=== PATIENT | male | born 1985 | race Caucasian/White ===

== ENCOUNTER 2019-08-31 17:44 | Emergency (ER) | payer OTHER ==
[2019-08-31 17:55] VITALS: BMI 23.8
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
[2019-08-31] MEDS ORDERED: KETOROLAC TROMETHAMINE 30 MG/1 ML VIAL IM ONE (18:00)
[2019-08-31] MEDS ORDERED: KETOROLAC TROMETHAMINE 30 MG/1 ML VIAL ONE (18:22)
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
[2019-08-31 20:34] VITALS: BP 122/77; PULSE 74; TEMP 98
== END 2019-08-31 20:36 | disposition home or self-care (01) ==
LOC: JER 17:44
PROC: 3E0233Z Introduction of Anti-inflammatory into Muscle, Percutaneous Approach (ICD-10-PCS; principal; 2019-08-31)
DX: S39.012A Strain of muscle, fascia and tendon of lower back, initial encounter (principal); M62.830 Muscle spasm of back; V49.49XA Driver injured in collision with other motor vehicles in traffic accident, initial encounter; Y92.414 Local residential or business street as the place of occurrence of the external cause; Y93.89 Activity, other specified; Y99.8 Other external cause status; F17.210 Nicotine dependence, cigarettes, uncomplicated
CPT/HCPCS: 99281-25

== ENCOUNTER 2020-05-24 17:00 | Emergency (ER) | payer OTHER ==
[2020-05-24 17:07] VITALS: BMI 26.2
[2020-05-24] MEDS ORDERED: SODIUM CHLORIDE 0.9% 500 ML INFUS.BAG IV ONE (17:39)
[2020-05-24] MEDS ORDERED: ONDANSETRON 4 MG/2 ML VIAL IVPUSH ONE (17:39)
--- NOTE | 2020-05-24 17:45 | PDOC ---
History of Present Illness - General Chief Complaint: Pain Stated Complaint: ABD PAIN Time Seen by Provider: 05/24/20 17:18 History Source: Patient Exam Limitations: No Limitations - History of Present Illness Initial Comments: 05/24/20 17:40 35-year-old male denies past medical history presents complaining of abdominal cramping with distention and nausea x 3 days. Initially felt chills and subjective fevers, reports approximately 10 episodes of loose stools with "green color " and mucus. Denies known sick contacts, recent travel, cough, chest pain, shortness of breath, back pain, urinary complaints, testicular pain, use of new medications. Patient tolerating p.o. ROS: as above PE: GENERAL: well-appearing, NAD HEAD: NCAT EYES: Pupils equal, round and reactive to light, sclera anicteric, conjunctiva clear ENT: pharynx: no erythema, no exudate, uvula midline NECK: supple CHEST: nontender RESP: clear, no w/r/r CARDIO: rrr, no m/g/r ABD: +BS, soft, right lower quadrant tenderness to palpation, no rebound, no guarding BACK: no midline spinal ttp, no CVAT EXTREMITIES: Normal range of motion, no edema NEUROLOGICAL: Normal speech, normal gait SKIN: Warm, Dry Is this a multiple visit Asthma Patient?: No Past History - Medical History Allergies/Adverse Reactions: Allergies Allergy/AdvReac Type Severity Reaction Status Date / Time No Known Allergies Allergy Verified 05/24/20 17:04 Home Medications: Ambulatory Orders Metronidazole 500 mg PO BID 10 Days #20 tablet 05/24/20 COPD: No - Immunization History Immunization Up to Date: Yes - Psycho-Social/Smoking History Smoking History: Current every day smoker Number of Cigarettes Smoked Daily: 8 Information on smoking cessation initiated: Yes - Substance Abuse Hx (Audit-C & DAST Scrn) How often the patient has a drink containing alcohol: Never Score: In Men: 4 or > Positive; In Women: 3 or > Positive: 0 Screen Result (Pos requires Nsg. Audit-10AR): Negative In the last yr the pt used illegal drug/Rx for NonMed reason: No Score: Yes response is considered Positive: 0 Screen Result (Positive result requires Nsg. DAST-10): Negative *Physical Exam - Vital Signs Last Vital Signs Temp Pulse Resp BP Pulse Ox 98.4 F 92 H 18 134/58 L 9 L 05/24/20 17:04 05/24/20 17:04 05/24/20 17:04 05/24/20 17:04 05/24/20 17:04 ED Treatment Course - LABORATORY CBC & Chemistry Diagram: 05/24/20 18:09 05/24/20 18:09 - RADIOLOGY Radiology Studies Ordered: Category Date Time Status ABDOMEN & PELVIS CT WITH CONTR [CT] Stat CT Scan 05/24/20 17:38 Ordered Medical Decision Making - Medical Decision Making 05/24/20 17:45 35-year-old male denies past medical history presents complaining of abdominal cramping with distention and nausea x 3 days. Initially felt chills and subjective fevers, reports approximately 10 episodes of loose stools with "green color " and mucus. Denies known sick contacts, recent travel, cough, chest pain, shortness of breath, back pain, urinary complaints, testicular pain, use of new medications or recent antibiotic use. Patient tolerating p.o. Labs, UA CTAP w/con Antiemetic IV fluids Reassess 05/24/20 21:49 CTAP w/con: Normal appendix, no diverticulitis, no obstruction Mucus in the ascending and proximal transverse colon cannot exclude colitis as per official reading by the radiology. We will treat with metronidazole Follow-up with GI within 1 week Discharge - Discharge Information Problems reviewed: Yes Clinical Impression/Diagnosis: Abdominal pain Qualifiers: Abdominal location: generalized Qualified Code(s): R10.84 - Generalized abdominal pain Condition: Stable Disposition: HOME - Admission No - Follow up/Referral Referrals: Yonny Long MD [Staff Physician] - - Patient Discharge Instructions Additional Instructions: Take metronidazole 500 mg 1 tablet twice a day for 10 days Follow-up with GI doctor next week If symptoms worsen or you have any concerns return to ED - Post Discharge Activity
[2020-05-24 18:31] LABS: BASO % 0.5 % (0-2.0); HEMATOCRIT 42.1 % (35.4-49); HEMOGLOBIN 13.7 GM/dL (11.7-16.9); LYMPH % 23.1 % (8-40); MCH 26.8 pg (25.7-33.7); MCHC 32.7 g/dl (32.0-35.9); MEAN PLT VOLUME 8.3 fl (7.5-11.1); MONO % 16.7 % (3.8-10.2); NEUT % 56.7 % (42.8-82.8); PLATELET COUNT 224 K/MM3 (134-434); RBC 5.13 M/mm3 (4.00-5.60); RDW 13.3 % (11.9-15.9); WHITE BLOOD COUNT 6.2 K/mm3 (4.0-10.0)
[2020-05-24 18:49] LABS: INR 1.28 (0.83-1.09); PROTHROMBIN TIME (PATIENT) 15.1 SEC (9.7-13.0)
[2020-05-24 18:52] LABS: ACTIVATED PTT 29.4 SECONDS (25.2-36.5)
[2020-05-24 18:53] LABS: URINE APPEARANCE CLEAR; URINE BILIRUBIN NEGATIVE (NEGATIVE); URINE COLOR DK YELLOW; URINE GLUCOSE (UA) NEGATIVE (NEGATIVE); URINE KETONE TRACE (NEGATIVE); URINE LEUK ESTERASE NEGATIVE (NEGATIVE); URINE NITRITE NEGATIVE (NEGATIVE); URINE PROTEIN TRACE (NEGATIVE)
[2020-05-24 19:00] LABS: ALBUMIN 3.9 g/dl (3.4-5.0); BILIRUBIN,TOTAL 0.6 mg/dL (0.2-1); BLOOD UREA NITROGEN 14.2 mg/dL (7-18); CALCIUM 9.3 mg/dL (8.5-10.1); CREATININE 0.9 mg/dL (0.55-1.3); POTASSIUM 4.1 mmol/L (3.5-5.1); TOT PROT 7.7 g/dl (6.4-8.2)
[2020-05-24 22:19] VITALS: BP 130/72; PULSE 84; TEMP 98.5
== END 2020-05-24 22:18 | disposition home or self-care (01) ==
LOC: JER 17:00
PROC: 3E033GC Introduction of Other Therapeutic Substance into Peripheral Vein, Percutaneous Approach (ICD-10-PCS; principal; 2020-05-24)
DX: R10.84 Generalized abdominal pain (principal)
CPT/HCPCS: 36415; 74177-TC; 80053; 81003; 85025; 85610; 85730; 86850; 86900; 86901; 87086; 99285-25; Q9967